=== PATIENT | male | born 1960 | race Caucasian/White ===

== ENCOUNTER 2018-04-21 03:09 | Emergency (ER) | payer OTHER ==
[2018-04-21 03:16] VITALS: BP 185/105; PULSE 68; BMI 23.5
--- NOTE | 2018-04-21 03:29 | PDOC ---
History of Present Illness - General Chief Complaint: Injury Stated Complaint: CUT FOOT WHILE CUTTING KRYSTA CALLUS Time Seen by Provider: 04/21/18 03:17 History Source: Patient Exam Limitations: No Limitations - History of Present Illness Initial Comments: 04/21/18 03:28 This is a 57-year-old male who was cutting the callus on his foot and cut too deep and now comes in complaining that it won't stop bleeding. Patient otherwise is up-to-date on his tetanus. Patient has no other complaints. Allergies: None Past Medical History: none Social history: Lives with family. No smoking. No alcohol. No illicit drugs. Surgical history: None General: No fevers or chills, no weakness, no weight loss HEENT: No change in vision. No sore throat,. No ear pain CardioVascular: no chest discomfort. No shortness of breath Respiratory:No cough, or wheezing. Gastrointestinal: no nausea, vomiting, diarrhea or constipation, No rectal bleeding Genitourinary: No dysuria, hematuria, or frequency Musculoskeletal: No joint or muscle pain or swelling Neurologic: No headache, vertigo, dizziness or loss of consciousness Psychiatric: nor depression Skin: No rashes or easy bruising, bleeding as per history of present illness Endocrine: no increased thirst or abnormal weight change Allergic: no skin or latex allergy All other systems reviewed and normal GENERAL: The patient is awake, alert, and fully oriented, in no acute distress. HEAD: Normal with no signs of trauma. EYES: Pupils equal, round and reactive to light, extraocular movements intact, sclera anicteric, conjunctiva clear. EXTREMITIES:atraumatic, Normal range of motion, no edema. Left foot there is a small area on the lateral plantar surface of the foot 2 x 3 mm where the skin has been cut away and there is oozing from the area NEUROLOGICAL: Normal speech, normal gait. PSYCH: Normal mood, normal affect. SKIN: Warm, Dry, normal turgor, no rashes or lesions noted. Procedure note Area cleaned with peroxide and closed with Dermabond patient tolerated well Band-Aid placed post Dermabond Past History - Past Medical History Allergies/Adverse Reactions: Allergies Allergy/AdvReac Type Severity Reaction Status Date / Time No Known Allergies Allergy Verified 04/21/18 03:10 Home Medications: Ambulatory Orders Atenolol [Tenormin] 25 mg PO DAILY 04/21/18 Oxybutynin Chloride [Ditropan Xl] 10 mg PO DAILY 04/21/18 COPD: No HTN: Yes - Immunization History Immunization Up to Date: Yes - Suicide/Smoking/Psychosocial Hx Smoking History: Never smoked Have you smoked in the past 12 months: No Information on smoking cessation initiated: No Hx Alcohol Use: No Drug/Substance Use Hx: No *Physical Exam - Vital Signs Last Vital Signs Temp Pulse Resp BP Pulse Ox 68 16 185/105 H 98 04/21/18 03:13 04/21/18 03:13 04/21/18 03:13 04/21/18 03:13 Moderate Sedation - Procedure Monitoring Vital Signs: Procedure Monitoring Vital Signs Temperature Pulse Rate 68 04/21/18 03:13 Respiratory Rate 16 04/21/18 03:13 Blood Pressure 185/105 H 04/21/18 03:13 O2 Sat by Pulse Oximetry (%) 98 04/21/18 03:13 *DC/Admit/Observation/Transfer Diagnosis at time of Disposition: Laceration of left foot - Discharge Dispostion Disposition: HOME Condition at time of disposition: Stable Decision to Admit order: No - Referrals - Patient Instructions Printed Discharge Instructions: DI for Laceration Repair With Dermabond Additional Instructions: Read over and follow Dermabond instructions. Return to the emergency department immediately with ANY new, persistent or worsening symptoms. Continue any medications as previously prescribed by your physician. You should follow up with your primary doctor as soon as possible regarding today's emergency department visit. . Please make sure your doctor reviews the results of your emergency evaluation. Thank you for coming to the Emergency Department today for your care. It was a pleasure to see you today. Please note that your evaluation is INCOMPLETE until you follow-up with your doctor. - Post Discharge Activity
== END 2018-04-21 03:34 | disposition home or self-care (01) ==
LOC: FER 03:09
PROC: 0HQNXZZ Repair Left Foot Skin, External Approach (ICD-10-PCS; principal; 2018-04-21)
DX: S91.312A Laceration without foreign body, left foot, initial encounter (principal); W27.8XXA Contact with other nonpowered hand tool, initial encounter; Y93.89 Activity, other specified; Y92.9 Unspecified place or not applicable; I10 Essential (primary) hypertension
CPT/HCPCS: 99281-25